=== PATIENT | female | born 1970 | race Caucasian/White ===

== ENCOUNTER 2018-12-21 19:37 | Emergency (ER) | payer MEDICAID, OTHER ==
[~2018-12-21] VITALS: Ht 162.6 cm; Wt 70.2 kg
[2018-12-21 19:43] VITALS: Ht 162.6 cm; Wt 70.2 kg
[2018-12-21] MEDS ORDERED: KETOROLAC 30 MG INJ IM STA (22:48)
[2018-12-22] MEDS ORDERED: IBUP-1542 PO (01:57)
[2018-12-22] MEDS ORDERED: ACET-141 PO (01:57)
--- NOTE | 2018-12-22 01:58 | ERD ---
ER Documentation Chief Complaint Chief Complaint pain/swelling right ankle x 1 week. denies trauma ROS All systems reviewed and are negative except as per history of present illness. Medications Home Meds Active Scripts Acetaminophen* (Acetaminophen*) 500 MG Extra Strength Tablet, 500 MG PO Q4H PRN for PAIN AND OR ELEVATED TEMP, #30 TAB Prov:JEWEL RAMIREZ DO 12/22/18 Ibuprofen* (Motrin*) 600 Mg Tab, 600 MG PO Q6H PRN for PAIN AND OR ELEVATED TEMP, #30 TAB Prov:JEWEL RAMIREZ DO 12/22/18 Allergies Allergies: Coded Allergies: No Known Drug Allergies (Verified Allergy, Unknown, 12/21/18) PMhx/Soc Medical and Surgical Hx: pt denies Medical Hx History of Surgery: Yes (Appendectomy ,18yrs old) Anesthesia Reaction: No Hx Neurological Disorder: No Hx Respiratory Disorders: No Hx Cardiac Disorders: No Hx Psychiatric Problems: No Hx Miscellaneous Medical Probl: No Hx Alcohol Use: No Hx Substance Use: No Hx Tobacco Use: No Physical Exam Vitals Vital Signs Date Temp Pulse Resp B/P (MAP) Pulse Ox O2 O2 Flow FiO2 Time Delivery Rate 12/21/18 98.7 79 18 131/76 98 19:43 (94) Physical Exam Const: No acute distress Head: Atraumatic Eyes: Normal Conjunctiva ENT: Normal External Ears, Nose and Mouth. Neck: Full range of motion. No meningismus. Resp: Clear to auscultation bilaterally Cardio: Regular rate and rhythm, no murmurs Abd: Soft, non tender, non distended. Normal bowel sounds Skin: No petechiae or rashes Back: No midline or flank tenderness Ext: No cyanosis, or edema Neur: Awake and alert Psych: Normal Mood and Affect Results 24 hrs Laboratory Tests Test 12/21/18 23:21 POC Beta HCG, Qualitative NEGATIVE Current Medications Medications Dose Sig/Dale Start Time Status Last (Trade) Ordered Route PRN Stop Time Admin Dose Reason Admin Ketorolac 30 mg ONCE STAT 12/21/18 DC 12/21/18 Tromethamine IM 22:48 12/21/18 23:28 (Toradol) 22:50 Departure Diagnosis: Primary Impression: Knee pain Chronicity: acute Laterality: right Qualified Codes: M25.561 - Pain in r ight knee Condition: Fair Patient Instructions: Knee Pain, Uncertain Cause Referrals: COMM[facility]ITY CL[facility] YOU HAVE RECEIVED A MEDICAL SCREENING EXAM AND THE RESULTS INDICATE THAT YOU DO NOT HAVE A CONDITION THAT REQUIRES URGENT TREATMENT IN THE EMERGENCY DEPARTMENT. FURTHER EVALUATION AND TREATMENT OF YOUR CONDITION CAN WAIT UNTIL YOU ARE SEEN IN YOUR DOCTORS OFFICE WITHIN THE NEXT 1-2 DAYS. IT IS YOUR RESPONSIBILITY TO MAKE AN APPOINTMENT FOR FOLOW-UP CARE. IF YOU HAVE A PRIMARY DOCTOR --you should call your primary doctor and schedule an appointment IF YOU DO NOT HAVE A PRIMARY DOCTOR YOU CAN CALL OUR PHYSICIAN REFERRAL HOTLINE AT IF YOU CAN NOT AFFORD TO SEE A PHYSICIAN YOU CAN CHOSE FROM THE FOLLOWING [facility] [address] [facility]. [facility] [address] [employer] [facility] [facility] [address] [facility] [facility] [address] [facility] [facility] [address] [facility] [facility] [address] Additional Instructions: Llame al doctor MAANA y shaye joseline TERESITA PARA DENTRO DE 1-2 ROWELL.Dgale a la secretaria que nosotros le instruimos hacer esta teresita.Avise o llame si zhou condicin se empeora antes de la teresita. Regresa aqui si peor o no mejor. JEWEL RAMIREZ DO Dec 22, 2018 01:58
[2018-12-22 02:10] VITALS: BP 134/79; PULSE 62; RESP 18
== END 2018-12-22 02:11 | disposition home or self-care (01) ==
LOC: FTE 19:37
DX: M25.561 Pain in right knee (principal)
CPT/HCPCS: 73562; 81025; 93971; J1885; 96372